=== PATIENT | male | born 1990 | race Caucasian/White ===

== ENCOUNTER 2023-06-22 13:39 | Outpatient (CLI) | payer SELFPAY ==
--- NOTE | 2023-06-22 17:39 | XRAY Report ---
PROCEDURE: Chest 3V INDICATIONS: PERSISTENT COUGH TECHNIQUE: 2 views of the chest were acquired. COMPARISON: None. FINDINGS: Surgical changes and devices: None. Lungs and pleura: No pleural effusions or pneumothorax. Lungs are clear. Mediastinum: Mediastinal contours appear normal. Heart size is normal. Bones and chest wall: No suspicious bony lesions. Overlying soft tissues appear unremarkable. IMPRESSION: No acute cardiopulmonary process. Reviewed by: Kailyn Li MD on 06/22/2023 5:37 PM PDT Approved by: Kailyn Li MD on 06/22/2023 5:37 PM PDT Station ID: [id number]
== END 2023-06-22 13:40 | disposition home or self-care (01) ==
LOC: DI.S 13:39
PROVIDERS: ATTEND Orthopaedic Surgery Sports Medicine
DX: R05.8 Other specified cough (principal)